=== PATIENT | female | born 1970 | race African-American/Black ===

== ENCOUNTER → 2017-09-08 | Outpatient (CLI) | payer BC ==
[~2017-09-08] MED LIST: CLON0.1T PO; GADOBUTROL 10 MMOL/10 ML VIAL IV ONE
[2017-09-08 16:38] LABS: CREATININE 0.7 mg/dL (0.6-1.0); GFR 108.5
--- NOTE | 2017-09-09 08:52 | RAD ---
MRI of the right upper extremity with with and without contrast HISTORY: Painful mass at the elbow for one month. No known injury. TECHNIQUE: Routine multiplanar sequences obtained at the area of interest before and after intravenous contrast. FINDINGS: Surface markers placed at the area of concern. There is a subcutaneous nodule here, located posterior to the medial ulna. The mass measures 15 mm diameter. Demonstrates hyperintense T2 signal, with moderately thick marginal wall enhancement. Underlying muscle tissue is intact without evidence of deep invasion. There is mild induration or edema of the adjacent subcutaneous tissue. No evidence of bone lesion or acute fracture. Ulnar nerve appears unremarkable. No significant joint effusion. IMPRESSION: Subcutaneous soft tissue mass at the posterior medial elbow. This may represent a complex cyst or hematoma. Consider small abscess if the patient is clinically infected. A solid mass with central necrosis is difficult to exclude but considered less likely. If managed conservatively, this could be evaluated with follow-up ultrasound exam. Electronically signed by: Sushil Cantrell MD (09/09/2017 8:49 AM) [facility]
== END | disposition home or self-care (01) ==
LOC: MRI 15:42
PROVIDERS: ATTEND Specialist
DX: M25.521 Pain in right elbow (principal); R22.31 Localized swelling, mass and lump, right upper limb
CPT/HCPCS: 36415; 73223; 82565; 84520; A9585